=== PATIENT | male | born 1990 | race Caucasian/White ===

== ENCOUNTER 2016-08-13 14:13 | Emergency (ER) | payer OTHER ==
[2016-08-13 14:18] VITALS: TEMP 98.2; BMI 27.3
--- NOTE | 2016-08-13 14:28 | PDOC ---
History of Present Illness <Tripp Carmen - Last Filed: 08/13/16 18:27> - General History Source: Patient Exam Limitations: No Limitations - History of Present Illness Initial Comments: 08/13/16 14:31 The patient is a 25 year old male with history of hernia s/p hernia repair who presents to the ED complaining of 2 days of bilateral lower abdominal pain, worse after eating and after urinating. He states he called his doctor and made an appointment, but could not wait, prompting him to come to the ED. The patient denies fever or chills. He denies nausea, vomiting, diarrhea, or constipation. He denies dysuria or hematuria. <Leanna Melgar - Last Filed: 08/13/16 18:39> - General Chief Complaint: Pain, Acute Stated Complaint: ABD. PAIN Time Seen by Provider: 08/13/16 14:28 Past History - Past Medical History Other medical history: PT DENIES MEDICAL HX - Surgical History Abdominal Surgery: Yes (Hernia Repair [facility] 01/04/16) - Immunization History Immunization Up to Date: Yes - Psycho/Social/Smoking Cessation Hx Anxiety: No Suicidal Ideation: No Smoking History: Never smoked Have you smoked in the past 12 months: No Hx Alcohol Use: No Drug/Substance Use Hx: No Substance Use Type: None <Tripp Carmen - Last Filed: 08/13/16 18:27> <Leanna Melgar - Last Filed: 08/13/16 18:39> - Past Medical History Allergies/Adverse Reactions: Allergies Allergy/AdvReac Type Severity Reaction Status Date / Time No Known Allergies Allergy Verified 08/13/16 14:18 Home Medications: Ambulatory Orders Ondansetron [Zofran *Odt*] 8 mg SL TID #30 od.tablet 01/05/16 Review of Systems - Review of Systems Able to Perform ROS?: Yes Comments:: 08/13/16 14:33 GENERAL/CONSTITUTIONAL: No fever or chills. No weakness. HEAD, EYES, EARS, NOSE AND THROAT: No change in vision. No ear pain or discharge. No sore throat CARDIOVASCULAR: No chest pain or shortness of breath. RESPIRATORY: No cough, wheezing, or hemoptysis. GASTROINTESTINAL: Bilateral lower abdominal pain. No nausea, vomiting, diarrhea or constipation. GENITOURINARY: No dysuria, frequency, or change in urination. MUSCULOSKELETAL: No joint or muscle swelling or pain. No neck or back pain. SKIN: No rash NEUROLOGIC: No headache, vertigo, loss of consciousness, or change in strength/ sensation. ENDOCRINE: No increased thirst. No abnormal weight change. HEMATOLOGIC/LYMPHATIC: No anemia, easy bleeding, or history of blood clots. ALLERGIC/IMMUNOLOGIC: No hives or skin allergy. <Leanna Melgar - Last Filed: 08/13/16 18:39> *Physical Exam - Vital Signs Last Vital Signs Temp Pulse Resp BP Pulse Ox 98.2 F 64 16 139/78 97 08/13/16 14:15 08/13/16 14:15 08/13/16 14:15 08/13/16 14:15 08/13/16 14:15 <Tripp Carmen - Last Filed: 08/13/16 18:27> - Vital Signs Last Vital Signs Temp Pulse Resp BP Pulse Ox 98.2 F 64 16 139/78 97 08/13/16 14:15 08/13/16 14:15 08/13/16 14:15 08/13/16 14:15 08/13/16 14:15 - Physical Exam Comments: 08/13/16 14:34 GENERAL: Awake, alert, and fully oriented, in no acute distress HEAD: No signs of trauma EYES: PERRLA, EOMI, sclera anicteric, conjunctiva clear ENT: Auricles normal inspection, hearing grossly normal, nares patent, oropharynx clear without exudates. Moist mucosa NECK: Normal ROM, supple, no lymphadenopathy, JVD, or masses LUNGS: Breath sounds equal, clear to auscultation bilaterally. No wheezes, and no crackles HEART: Regular rate and rhythm, normal S1 and S2, no murmurs, rubs or gallops ABDOMEN: Soft, nontender, normoactive bowel sounds. No guarding, no rebound. No masses EXTREMITIES: Normal range of motion, no edema. No clubbing or cyanosis. No cords, erythema, or tenderness NEUROLOGICAL: Cranial nerves II through XII grossly intact. Normal speech, normal gait SKIN: Warm, Dry, normal turgor, no rashes or lesions noted. <Leanna Melgar - Last Filed: 08/13/16 18:39> ED Treatment Course - LABORATORY CBC & Chemistry Diagram: 08/13/16 14:36 08/13/16 14:36 <Tripp Carmen - Last Filed: 08/13/16 18:27> - LABORATORY CBC & Chemistry Diagram: 08/13/16 14:36 08/13/16 14:36 - RADIOLOGY Radiograph Interpretation: 08/13/16 18:39 CT of abdomen and pelvis with contrast FINDINGS:Serial transaxial images of the abdomen and pelvis are available following oral and intravenous contrast agent. Sagittal and coronal reformatted imaging is also available. Visible portions of the lung base are normal. No focal abnormality of the liver is seen. The gallbladder is contracted. The spleen is within normal limits. A small accessory spleen is questioned. There is a moderate amount of retained food substance in the stomach. The pancreas is normal. The adrenal glands are normal. The kidneys are normal. Neither collecting system is dilated. There is poor distention of the urinary bladder. No gross abnormality of the prostate gland is seen. A normal appendix is seen. No inflammation of the colon is seen or small bowel. No bowel obstruction is seen. There is no free air. No free fluid is seen. No hernia is seen. The vascular structures are unremarkable. No adenopathy is seen. The osseous structures are unremarkable... IMPRESSION: Unremarkable study THIS DOCUMENT HAS BEEN ELECTRONICALLY SIGNED Julian Delacruz MD 08/13/2016 17:54 EST <Leanna Melgar - Last Filed: 08/13/16 18:39> *DC/Admit/Observation/Transfer - Discharge Dispostion Admit: No - Attestations Physician Attestion: 08/13/16 14:28 I, Dr. Tripp Carmen, attest that this document has been prepared under my direction and personally reviewed by me in its entirety. I further attest, that it accurately reflects all work, treatment, procedures and medical decision -making performed by me. <Tripp Carmen - Last Filed: 08/13/16 18:27> - Attestations Scribe Attestion: 08/13/16 14:34 Documentation prepared by Leanna Melgar, acting as er medical technician for Tripp Carmen DO. <Leanna Melgar - Last Filed: 08/13/16 18:39> Diagnosis at time of Disposition: Abdominal pain Qualifiers: Abdominal location: generalized Qualified Code(s): R10.84 - Generalized abdominal pain - Discharge Dispostion Disposition: HOME Condition at time of disposition: Good - Referrals Referrals: Shoaib Cheatham MD [Primary Care Provider] - Javier Gamez MD [Staff Physician] - - Patient Instructions Printed Discharge Instructions: DI for Abdominal Pain-Adult Additional Instructions: Ali- All of your blood and urine tests were normal, except for two tests on the urine that do not come back today. Your CT Scan was normal too. I think it best that you see a equipment cleaner next. Dr Gamez is information coder so start with him. Return to us if worse or new symptoms occur. If any of the two tests on the urine come positive we will call you directly in the next day or so. Best- Dr. Tripp Carmen
[2016-08-13] MEDS ORDERED: morphine CARPU-JECT 4 MG/1 ML DISP.SYRIN ONE (14:55)
[2016-08-13 15:30] LABS: URINE APPEARANCE CLEAR; URINE BILIRUBIN NEGATIVE (NEGATIVE); URINE BLOOD NEGATIVE (NEGATIVE); URINE COLOR LTYELLOW; URINE GLUCOSE (UA) NEGATIVE (NEGATIVE); URINE KETONE NEGATIVE (NEGATIVE); URINE LEUK ESTERASE NEGATIVE (NEGATIVE); URINE NITRITE NEGATIVE (NEGATIVE); URINE PROTEIN NEGATIVE (NEGATIVE); URINE UROBILINOGEN NEGATIVE E.U./dl (0.2-1.0)
[2016-08-13 15:48] LABS: BASOPHIL 0.9 % (0-2.0); EOSINOPHIL 5.8 % (0-4.5); MCH 29.7 pg (25.7-33.7); MCHC 35.5 g/dl (32.0-35.9); MEAN CELL VOLUME 83.5 fl (80-96); MEAN PLT VOLUME 9.8 fl (7.5-11.1); NEUTROPHILS 50.1 % (42.8-82.8); PLATELET COUNT 243 K/MM3 (134-434); RDW 12.6 % (11.9-15.9); WHITE BLOOD COUNT 6.8 K/mm3 (4.0-10.0)
[2016-08-13 16:03] LABS: INR 1.05 (0.82-1.09); PROTHROMBIN TIME (PATIENT) 11.6 SEC (9.98-11.88)
[2016-08-13 16:18] LABS: ALBUMIN 3.8 g/dl (3.4-5.0); ALK PHOS 75 U/L (45-117); ANION GAP 10 (8-16); BILIRUBIN,TOTAL 0.6 mg/dL (0.2-1.0); CALCIUM 8.5 mg/dL (8.5-10.1); CO2 28 mmol/L (21-32); CREATININE 0.8 mg/dL (0.7-1.3); GLUCOSE,RANDOM 89 mg/dL (74-106); SGOT/AST 22 U/L (15-37); SGPT/ALT 31 U/L (12-78)
[2016-08-13 18:42] VITALS: BP 136/88; PULSE 78
== END 2016-08-13 18:41 | disposition home or self-care (01) ==
LOC: JER 14:13
DX: R10.84 Generalized abdominal pain (principal)
CPT/HCPCS: 36415; 74177-TC; 80053; 81003; 83690; 85025; 85610; 87491; 87591; 99283-25

== ENCOUNTER 2017-01-31 14:40 | Emergency (ER) | payer OTHER ==
[2017-01-31 14:45] VITALS: BP 99/71; PULSE 61; TEMP 98.3; BMI 27.3
--- NOTE | 2017-01-31 15:28 | PDOC ---
History of Present Illness - General Chief Complaint: Pain Stated Complaint: RT ARM PAIN Time Seen by Provider: 01/31/17 14:57 History Source: Patient - History of Present Illness Occurred: reports: this morning Upper Extremity Pain Location: right: forearm Past History - Past Medical History Allergies/Adverse Reactions: Allergies Allergy/AdvReac Type Severity Reaction Status Date / Time No Known Allergies Allergy Verified 01/31/17 14:45 Home Medications: Ambulatory Orders NK [No Known Home Medication] 01/31/17 Other medical history: NONE - Surgical History Abdominal Surgery: Yes (HERNIA REPAIR) - Immunization History Immunization Up to Date: Yes - Psycho/Social/Smoking Cessation Hx Anxiety: No Suicidal Ideation: No Smoking History: Never smoked Have you smoked in the past 12 months: No Hx Alcohol Use: No Drug/Substance Use Hx: No Substance Use Type: None Review of Systems - Review of Systems Constitutional: No: Chills, Fever Integumentary: No: Erythema *Physical Exam - Vital Signs Last Vital Signs Temp Pulse Resp BP Pulse Ox 98.3 F 61 20 99/71 99 01/31/17 14:43 01/31/17 14:43 01/31/17 14:43 01/31/17 14:43 01/31/17 14:43 - Physical Exam General Appearance: Yes: Appropriately Dressed. No: Apparent Distress HEENT: positive: Normal Voice Neck: positive: Supple Respiratory/Chest: negative: Respiratory Distress Extremity: positive: Other (~1cm firm, rounded rubbery, flesh colored lesion located to proximal aspect of volar aspect of R forearm, c/w possible ganglionic cyst, no sig tenderness, no erythema) Integumentary: positive: Dry, Warm Neurologic: positive: Fully Oriented, Alert, Normal Mood/Affect Medical Decision Making - Medical Decision Making 01/31/17 15:28 26 yo M, no sig hx, here w/ painful swellign to R forearm that pt awoke with this am. Denies trauma. No f/c. See exam Possible ganglionic cyst -dc w/ motrin, reassurance that cyst can spontaneously resolve -ortho f/u for possible aspiration if no improvement 01/31/17 15:48 *DC/Admit/Observation/Transfer Diagnosis at time of Disposition: Forearm swelling - Discharge Dispostion Disposition: HOME Condition at time of disposition: Good - Referrals Referrals: Naty Cheatham [Primary Care Provider] - Pk Duffy MD [Staff Physician] - - Patient Instructions Printed Discharge Instructions: Ganglion Cyst Additional Instructions: It appears that you have a cyst at this time, which usually spontaneously resolves. Take 600mg Motrin as needed for pain. If after several weeks, cyst do not improve and/or worsen, please follow-up with orthopedic for possible drainage
== END 2017-01-31 15:32 | disposition home or self-care (01) ==
LOC: JERFT 14:40
DX: M79.89 Other specified soft tissue disorders (principal)
CPT/HCPCS: 99281-25

== ENCOUNTER 2017-06-12 18:59 | Emergency (ER) | payer OTHER ==
[2017-06-12] MEDS ORDERED: IBUPROFEN 600 MG TABLET (FP) PO ONE ×2 (19:31→20:03)
[2017-06-12 19:33] VITALS: BP 140/76; PULSE 84; TEMP 98.3; BMI 26.6
--- NOTE | 2017-06-12 19:37 | PDOC ---
Rapid Medical Evaluation Chief Complaint: Sore Throat Time Seen by Provider: 06/12/17 19:29 Medical Evaluation: Allergies Allergy/AdvReac Type Severity Reaction Status Date / Time No Known Allergies Allergy Verified 01/31/17 14:45 06/12/17 19:30 c/o headache, sorethroat and neck pain x 3 days. no fever. denies taking any medication for pain PE: patient alert ox3, pharynx erythema. no cervical lymphadenopathy. Plan: rapid strep, ibuprofen patient to be evaluated for further management of care. 06/12/17 19:34
--- NOTE | 2017-06-12 20:02 | PDOC ---
History of Present Illness - General Chief Complaint: Head/Neck problem Stated Complaint: HEAD/NECK PROBLEM Time Seen by Provider: 06/12/17 19:29 History Source: Patient Exam Limitations: No Limitations - History of Present Illness Initial Comments: 06/12/17 19:59 26-year-old male with no medical history presents to the emergency department complaining of headache, right-sided neck soreness with a sore throat 3 days without fever, chills, nausea/vomiting, facial pains, rhinorrhea, nasal congestion, neck stiffness, back pains, chest pain, shortness of breath, abdominal pains, flank pains, urinary symptoms, extremity numbness or tingling sensation. Patient states he denies taking any pain medication.+ Sick contacts at work. Timing/Duration: other (x3d) Past History - Past Medical History Allergies/Adverse Reactions: Allergies Allergy/AdvReac Type Severity Reaction Status Date / Time No Known Allergies Allergy Verified 06/12/17 19:30 Home Medications: Ambulatory Orders NK [No Known Home Medication] 01/31/17 COPD: No - Surgical History Abdominal Surgery: Yes (HERNIA REPAIR) - Immunization History Immunization Up to Date: Yes - Suicide/Smoking/Psychosocial Hx Smoking History: Former smoker Have you smoked in the past 12 months: No If you are a former smoker, when did you quit?: 6-7 years ago Information on smoking cessation initiated: No Hx Alcohol Use: No Drug/Substance Use Hx: No Substance Use Type: None Review of Systems - Review of Systems Able to Perform ROS?: Yes Comments:: 06/12/17 20:00 CONSTITUTIONAL: Absent: fever, chills, diaphoresis, generalized weakness, malaise, loss of appetite HEENT: +throat pain, cody Absent: rhinorrhea, nasal congestion, throat swelling, difficulty swallowing, mouth swelling, ear pain, eye pain, visual Changes CARDIOVASCULAR: Absent: chest pain, loss of consciousness, palpitations, irregular heart rate, peripheral edema RESPIRATORY: Absent: cough, shortness of breath, dyspnea with exertion, orthopnea, wheezing, stridor, hemoptysis GASTROINTESTINAL: Absent: abdominal pain, abdominal distension, nausea, vomiting, diarrhea, constipation, melena, hematochezia GENITOURINARY: Absent: dysuria, frequency, urgency, hesitancy, hematuria, flank pain, genital pain MUSCULOSKELETAL: right sided neck soreness Absent: myalgia, arthralgia, joint swelling SKIN: Absent: rash, itching, pallor Is the patient limited [place] Citizen proficient: No *Physical Exam - Vital Signs Last Vital Signs Temp Pulse Resp BP Pulse Ox 98.3 F 84 18 140/76 99 06/12/17 19:30 06/12/17 19:30 06/12/17 19:30 06/12/17 19:30 06/12/17 19:30 - Physical Exam Comments: 06/12/17 20:00 GENERAL: Well developed, well nourished. Awake and alert. No acute distress. HEENT: Normocephalic, atraumatic. PERRLA, EOMI. No conjunctival pallor. Sclera are non- icteric. Moist mucous membranes. Oropharynx is clear. NECK: Supple. Full ROM. No JVD. Carotid pulses 2+ and symmetric, without bruits. No thyromegaly. No lymphadenopathy. CARDIOVASCULAR: Regular rate and rhythm. No murmurs, rubs, or gallops. Distal pulses are 2+ and symmetric. PULMONARY: No evidence of respiratory distress. Lungs clear to auscultation bilaterally. No wheezing, rales or rhonchi. ABDOMINAL: Soft. Non-tender. Non-distended. No rebound or guarding. No organomegaly. Normoactive bowel sounds. MUSCULOSKELETAL Normal range of motion at all joints. No bony deformities or tenderness. No CVA tenderness. EXTREMITIES: No cyanosis. No clubbing. No edema. No calf tenderness. SKIN: Warm and dry. Normal capillary refill. No rashes. No jaundice. *DC/Admit/Observation/Transfer Diagnosis at time of Disposition: Viral syndrome - Discharge Dispostion Disposition: HOME Condition at time of disposition: Stable Admit: No - Referrals Referrals: Shoaib Cheatham MD [Primary Care Provider] - - Patient Instructions Printed Discharge Instructions: DI for Viral Syndrome Additional Instructions: Rest Increase fluids Tylenol alternating with motrin as needed for pain Follow up with your physician within 48 hours Return to the ER for severe/persistent/worsening symptoms - Post Discharge Activity
== END 2017-06-12 20:24 | disposition home or self-care (01) ==
LOC: JERFT 18:59
DX: B34.9 Viral infection, unspecified (principal)
CPT/HCPCS: 87070; 87430; 99281-25

== ENCOUNTER 2018-01-20 20:38 | Emergency (ER) | payer SELFPAY ==
[2018-01-20 20:45] VITALS: BP 114/57; PULSE 76; TEMP 98.2
--- NOTE | 2018-01-20 21:15 | PDOC ---
History of Present Illness - General Chief Complaint: Cold Symptoms Stated Complaint: COLD SYMPTOMS Time Seen by Provider: 01/20/18 21:00 History Source: Patient - History of Present Illness Timing/Duration: reports: other Associated Symptoms: reports: cough, sore throat. denies: denies symptoms, earache, fever/chills, headache, muscle aches, nasal congestion, nasal drainage , shortness of breath, wheezing Past History - Past Medical History Allergies/Adverse Reactions: Allergies Allergy/AdvReac Type Severity Reaction Status Date / Time No Known Allergies Allergy Verified 01/20/18 20:43 Home Medications: Ambulatory Orders Clotrimazole [Alevazol] 56.7 gm TP ASDIR #1 oint...g. 01/20/18 COPD: No - Surgical History Abdominal Surgery: Yes (HERNIA REPAIR) - Immunization History Immunization Up to Date: Yes - Suicide/Smoking/Psychosocial Hx Smoking History: Never smoked Have you smoked in the past 12 months: No If you are a former smoker, when did you quit?: 6-7 years ago Information on smoking cessation initiated: No Hx Alcohol Use: No Drug/Substance Use Hx: No Substance Use Type: None Review of Systems - Review of Systems Constitutional: No: Chills, Fever Respiratory: No: Cough, Shortness of Breath ABD/GI: No: Diarrhea, Nausea, Vomiting : Yes: Other (groin rash). No: Burning, Dysuria, Discharge, Flank Pain, Hematuria, Testicular Swelling *Physical Exam - Vital Signs Last Vital Signs Temp Pulse Resp BP Pulse Ox 98.2 F 76 18 114/57 98 01/20/18 20:43 01/20/18 20:43 01/20/18 20:43 01/20/18 20:43 01/20/18 20:43 - Physical Exam General Appearance: Yes: Appropriately Dressed. No: Apparent Distress HEENT: positive: Normal ENT Inspection, Normal Voice, TMs Normal, Pharynx Normal. negative: Scleral Icterus (R), Scleral Icterus (L) Neck: positive: Supple. negative: Lymphadenopathy (R), Lymphadenopathy (L) Respiratory/Chest: positive: Lungs Clear, Normal Breath Sounds. negative: Respiratory Distress Cardiovascular: positive: Regular Rate, S1, S2 Male Genitalia: positive: normal genitalia, other (erythematous patch w/ central clearing to proximal medial thigh extending into perineum c/w tinea cruris). negative: testicular tenderness, testicular mass, epididymus tender, inguinal hernia Integumentary: positive: Dry, Warm Neurologic: positive: Fully Oriented, Alert, Normal Mood/Affect Medical Decision Making - Medical Decision Making 01/20/18 21:10 27-year-old male, no significant history, here with multiple complaints. Patient complaining of sore throat with dry cough x several days. No wheezing, shortness of breath, chest pain, ear pain, body aches, f/c. No sick contacts. Also c/o pruritic rash to bilateral groin 2 weeks, not better with Lotrimin cream. No dysuria, penile discharge, testicular pain or swelling. Patient well -appearing and stable with exam only remarkable for Tinea Cruris. Dc with clotrimazole and PMD follow-up. *DC/Admit/Observation/Transfer Diagnosis at time of Disposition: Tinea cruris URI (upper respiratory infection) Qualifiers: URI type: unspecified viral URI Qualified Code(s): J06.9 - Acute upper respiratory infection, unspecified - Discharge Dispostion Disposition: HOME Condition at time of disposition: Good - Prescriptions Prescriptions: Clotrimazole [Alevazol] 56.7 gm TP ASDIR #1 oint...g. - Referrals - Patient Instructions Printed Discharge Instructions: Carolck Itch, DI for Viral Upper Respiratory Infection -- Adult Additional Instructions: Apply ointment as directed and follow-up with your PMD To prevent recurrence of jock itch in the future, consider using daily desiccant powders in the groin area and avoid wearing tight fitting clothing and non cotton underwear - Post Discharge Activity
== END 2018-01-20 21:25 | disposition home or self-care (01) ==
LOC: JERFT 20:38
DX: J06.9 Acute upper respiratory infection, unspecified (principal); B35.6 Tinea cruris
CPT/HCPCS: 99281-25

== ENCOUNTER 2020-06-26 18:47 | Emergency (ER) | payer OTHER ==
[2020-06-26 19:17] VITALS: BMI 24.4
[2020-06-26] MEDS ORDERED: ACETAMINOPHEN 500 MG TABLET (FP) PO ONE (20:48)
[2020-06-26] MEDS ORDERED: ACETAMINOPHEN 325 MG TABLET (FP) ONE (21:24)
[2020-06-26] MEDS ORDERED: LIDOCAINE VISCOUS 2% ORAL/TOP 15 ML UNIT-DOSE CUP MM ONE (21:55)
[2020-06-26] MEDS ORDERED: MAG HYDROX/AL HYDROX/SIMETH -MYLANTA- ORAL SUSPENSION PO ONE (21:55)
[2020-06-26] MEDS ORDERED: FAMOTIDINE 10 MG TABLET PO ONE (21:56)
[2020-06-26] MEDS ORDERED: LIDOCAINE VISCOUS 2% ORAL/TOP 15 ML UNIT-DOSE CUP ONE (22:00)
[2020-06-26] MEDS ORDERED: MAG HYDROX/AL HYDROX/SIMETH 30 ML UNIT-DOSE CUP ONE (22:00)
[2020-06-26] MEDS ORDERED: FAMOTIDINE 10 MG TABLET ONE (22:17)
[2020-06-26 22:34] VITALS: BP 128/84; PULSE 72; TEMP 98.8
== END 2020-06-26 22:33 | disposition home or self-care (01) ==
LOC: JER 18:47
DX: G44.209 Tension-type headache, unspecified, not intractable (principal)
CPT/HCPCS: 71046-TC-FY; 82962; 93005; 93010; 99284-25

== ENCOUNTER 2021-01-30 16:25 | Emergency (ER) | payer OTHER ==
[2021-01-30 16:32] VITALS: BP 138/77; PULSE 62; TEMP 97.8; BMI 26.6
[2021-01-30] MEDS ORDERED: KETOROLAC TROMETHAMINE 30 MG/1 ML VIAL IM ONE (17:46)
[2021-01-30] MEDS ORDERED: KETOROLAC TROMETHAMINE 30 MG/1 ML VIAL ONE (17:50)
== END 2021-01-30 18:12 | disposition home or self-care (01) ==
LOC: JERFT 16:25
PROC: 3E0233Z Introduction of Anti-inflammatory into Muscle, Percutaneous Approach (ICD-10-PCS; principal; 2021-01-30)
DX: M25.562 Pain in left knee (principal); W19.XXXA Unspecified fall, initial encounter; Y92.9 Unspecified place or not applicable
CPT/HCPCS: 73562-TC-LT-FY; 99284-25

== ENCOUNTER 2021-06-05 01:41 | Emergency (ER) | payer OTHER ==
[2021-06-05 01:52] VITALS: BP 136/84; PULSE 76; TEMP 98.2; BMI 28.2
[2021-06-05] MEDS ORDERED: IBUPROFEN 400 MG TABLET (FP) PO ONE ×2 (02:47→02:55)
== END 2021-06-05 03:00 | disposition home or self-care (01) ==
LOC: JER 01:41
DX: R07.9 Chest pain, unspecified (principal)
CPT/HCPCS: 93005; 93010; 99284-25

== ENCOUNTER 2022-01-24 02:10 | Emergency (ER) | payer OTHER ==
[2022-01-24 02:45] VITALS: BP 121/78; PULSE 77; RESP 18; TEMP 98.4; BMI 33.4
== END 2022-01-24 04:37 | disposition home or self-care (01) ==
LOC: JER 02:10
DX: S61.412A Laceration without foreign body of left hand, initial encounter (principal); W25.XXXA Contact with sharp glass, initial encounter
CPT/HCPCS: 73130-TC-LT-FY; 99283-25

== ENCOUNTER 2022-04-18 22:23 | Emergency (ER) | payer OTHER ==
[2022-04-18 22:33] VITALS: BP 126/72; PULSE 67; RESP 18; TEMP 98.3; BMI 31.4
[2022-04-18] MEDS ORDERED: ACETAMINOPHEN 500 MG TABLET (FP) PO ONE (22:44)
[2022-04-18] MEDS ORDERED: IBUPROFEN 400 MG TABLET (FP) PO ONE (22:44)
[2022-04-18] MEDS ORDERED: IBUPROFEN 600 MG TABLET (FP) PO ONE (22:49)
[2022-04-18] MEDS ORDERED: ACETAMINOPHEN 500 MG TABLET (FP) ONE (22:49)
== END 2022-04-19 00:04 | disposition home or self-care (01) ==
LOC: JER 22:23
DX: S99.921A Unspecified injury of right foot, initial encounter (principal); S93.401A Sprain of unspecified ligament of right ankle, initial encounter; W01.0XXA Fall on same level from slipping, tripping and stumbling without subsequent striking against object, initial encounter
CPT/HCPCS: 73610-TC-RT-FY; 73630-TC-RT-FY; 99283-25

== ENCOUNTER 2022-11-11 23:16 | Emergency (ER) | payer OTHER ==
[2022-11-11 23:24] VITALS: BP 133/75; PULSE 89; RESP 20; TEMP 98.1; BMI 29.6
== END 2022-11-12 00:58 | disposition home or self-care (01) ==
LOC: JER 23:16
DX: Z48.02 Encounter for removal of sutures (principal)
CPT/HCPCS: 99281-25

== ENCOUNTER 2022-12-19 00:09 | Emergency (ER) | payer OTHER ==
[2022-12-19 00:19] VITALS: RESP 18; TEMP 98.2; BMI 31.4
[2022-12-19] MEDS ORDERED: ALBUTEROL SO4 2.5/IPRATROPIUM 0.5 INH SOL 3 ML VIAL.NEB. NEB ONE (02:22)
[2022-12-19] MEDS: ALBUTEROL SO4 2.5/IPRATROPIUM 0.5 INH SOL 3 ML VIAL.NEB. NEB SCH ×3 (02:29→02:50)
[2022-12-19] MEDS ORDERED: FAMOTIDINE 20 MG TABLET PO ONE (03:26)
[2022-12-19] MEDS ORDERED: MAG HYDROX/AL HYDROX/SIMETH 30 ML UNIT-DOSE CUP PO ONE (03:26)
[2022-12-19] MEDS ORDERED: LIDOCAINE VISCOUS 2% ORAL/TOP 15 ML UNIT-DOSE CUP MM ONE (03:28)
[2022-12-19] MEDS ORDERED: LIDOCAINE VISCOUS 2% ORAL/TOP 15 ML UNIT-DOSE CUP ONE ×2 (04:17→04:20)
[2022-12-19] MEDS ORDERED: MAG HYDROX/AL HYDROX/SIMETH 30 ML UNIT-DOSE CUP ONE (04:17)
[2022-12-19] MEDS ORDERED: FAMOTIDINE 20 MG TABLET ONE (04:17)
[2022-12-19 05:53] LABS: EOS % 7.7 % (0-4.5); HEMATOCRIT 45.8 % (35.4-49); LYMPH % 36.6 % (8-40); MCH 29.8 pg (25.7-33.7); MCHC 34.9 g/dl (32.0-35.9); MEAN CELL VOLUME 85.3 fl (80-96); MEAN PLT VOLUME 9.2 fl (7.5-11.1); NEUT % 47.7 % (42.8-82.8); PLATELET COUNT 218 10^3/uL (134-434); RBC 5.37 M/mm3 (4.00-5.60); RDW 12.9 % (11.9-15.9)
[2022-12-19 06:13] LABS: POTASSIUM 3.8 mmol/L (3.5-5.1)
[2022-12-19 06:14] LABS: CALCIUM 9.3 mg/dL (8.5-10.1)
[2022-12-19 06:15] LABS: ALBUMIN 3.7 g/dl (3.4-5.0)
[2022-12-19 06:18] LABS: CREATININE 0.8 mg/dL (0.55-1.3)
[2022-12-19 06:20] LABS: BILIRUBIN,TOTAL 0.6 mg/dL (0.2-1); TOT PROT 6.9 g/dl (6.4-8.2)
[2022-12-19 06:35] LABS: INR 0.93 (0.83-1.09); PROTHROMBIN TIME (PATIENT) 10.8 SEC (9.7-13.0)
[2022-12-19] MEDS ORDERED: methylPREDNISolone NA SUCC 125 MG/2 ML VIAL IVPB ONE (06:36)
[2022-12-19 06:38] LABS: ACTIVATED PTT 28.4 SECONDS (25.2-36.5)
[2022-12-19] MEDS ORDERED: methylPREDNISolone NA SUCC 125 MG/2 ML VIAL ONE (06:52)
[2022-12-19 07:57] VITALS: BP 120/74; PULSE 61
== END 2022-12-19 07:57 | disposition home or self-care (01) ==
LOC: JER 00:09
PROC: 3E033NZ Introduction of Analgesics, Hypnotics, Sedatives into Peripheral Vein, Percutaneous Approach (ICD-10-PCS; principal; 2022-12-19)
PROC: 3E0F7GC Introduction of Other Therapeutic Substance into Respiratory Tract, Via Natural or Artificial Opening (ICD-10-PCS; 2022-12-19)
DX: R06.02 Shortness of breath (principal); R07.89 Other chest pain; J45.901 Unspecified asthma with (acute) exacerbation; Z20.822 Contact with and (suspected) exposure to COVID-19
CPT/HCPCS: 0241U-QW; 36415; 71046-TC-FY; 80053; 84484; 85025; 85379; 85610; 85730; 93005; 93010; 99285-25

== ENCOUNTER 2023-03-24 23:47 | Emergency (ER) | payer OTHER ==
[2023-03-24 23:52] VITALS: BP 126/79; PULSE 80; RESP 18; TEMP 98.1; BMI 31.4
[2023-03-25] MEDS ORDERED: DEXAMETHASONE SOD PHOSPHATE 10 MG/1 ML VIAL IM ONE (00:28)
[2023-03-25] MEDS ORDERED: DEXAMETHASONE SOD PHOSPHATE 10 MG/1 ML VIAL ONE (00:35)
[2023-03-25] MEDS ORDERED: PSEUDOEPHEDRINE HCL 30 MG TABLET PO ONE (01:33)
== END 2023-03-25 01:34 | disposition home or self-care (01) ==
LOC: JER 23:47
PROC: 3E023GC Introduction of Other Therapeutic Substance into Muscle, Percutaneous Approach (ICD-10-PCS; principal; 2023-03-25)
DX: R05.1 Acute cough (principal); R13.10 Dysphagia, unspecified; Z20.822 Contact with and (suspected) exposure to COVID-19
CPT/HCPCS: 0241U-QW; 87070; 87651; 99284-25; J1100

== ENCOUNTER 2023-08-12 03:20 | Emergency (ER) | payer OTHER ==
[2023-08-12 03:27] VITALS: BP 111/80; PULSE 69; RESP 20; TEMP 98.6; BMI 30.7
== END 2023-08-12 05:45 | disposition home or self-care (01) ==
LOC: JER 03:20
DX: R06.02 Shortness of breath (principal); R07.89 Other chest pain; B34.9 Viral infection, unspecified
CPT/HCPCS: 36415; 71046-TC-FY; 84484; 93005; 93010; 99285-25

== ENCOUNTER 2024-03-29 20:46 | Emergency (ER) | payer SELFPAY ==
[2024-03-29 20:51] VITALS: BP 137/74; PULSE 65; RESP 20; TEMP 98.2; BMI 30.7
[2024-03-29] MEDS ORDERED: IBUPROFEN 600 MG TABLET (FP) PO ONE (21:51)
[2024-03-29] MEDS: IBUPROFEN 600 MG TABLET (FP) PO ONE (21:54)
[2024-03-30 00:16] LABS: HIV INTERPRETATION NEGATIVE (NEGATIVE)
== END 2024-03-30 00:33 | disposition home or self-care (01) ==
LOC: JER 20:46
DX: S93.402A Sprain of unspecified ligament of left ankle, initial encounter (principal); X50.1XXA Overexertion from prolonged static or awkward postures, initial encounter
CPT/HCPCS: 36415; 73590-TC-LT-FY; 73610-TC-LT-FY; 86803; 87389; 99284-25